=== PATIENT | female | born 1935 ===

== ENCOUNTER 2020-07-09 09:18 | Inpatient (IN) | payer MEDICARE, OTHER ==
[~2020-07-09] VITALS: Ht 152.4 cm; Wt 61.6 kg
--- NOTE | 2020-07-09 09:30 | NUR ---
TIRE BAGGER: RA SAT = 86%, 2L NC PLACED IN TRIAGE W/ EFFECT SP02 = 97%
--- NOTE | 2020-07-09 09:51 | NUR ---
PT IN GOWN IN [facility] WITH ALL VS AND GROCERY CARRIER ATTACHED. DR VILLARREAL AT . PT EDUCATED ON ER PROCESS AND POC AND VERBALIZES UNDERSTANDING. PT ON 2 L NC SATTING 96%. PT HAS CALL LIGHT WITHIN REACH. PT HISTORY AND ASSESSMENT OBTAINED. AWAITING NEW ORDERS AT THIS TIME.
--- NOTE | 2020-07-09 10:16 | NUR ---
BS REPORT OF PT TO LIMA GRIFFITH. ALL QUESTIONS ANSWERED.
--- NOTE | 2020-07-09 10:28 | NUR ---
BEDSIDE SBAR RPT REC'D AND PT CARE ASSUMED.
[2020-07-09 10:39] LABS: BASOPHILS % (AUTO) 0 % (0-1); EOSINOPHILS % (AUTO) 0 % (1-7); LYMPHOCYTES % (AUTO) 15 % (22-44); MEAN CORPUSCULAR HEMOGLOBIN 30.8 pg (27.0-34.8); MEAN CORPUSCULAR HGB CONC 33.9 g/dL (32.4-35.8); MEAN PLATELET VOLUME 7.6 fL (7.4-10.4); MONOCYTES % (AUTO) 15 % (2-9); NEUTROPHILS % (AUTO) 70 % (42-75); PLATELET COUNT 288 x10^3/uL (130-400); RED BLOOD COUNT 4.43 x10^6/uL (3.82-5.3); RED CELL DISTRIBUTION WIDTH 13.9 % (9.6-15.2)
[2020-07-09 10:41] LABS: MD NO
[2020-07-09] MEDS ORDERED: CEFTRIAXONE PMX 1GM/50ML 50 ML ONE (10:49)
[2020-07-09 10:50] LABS: ANION GAP 8 mmol/L (5-15); CALCIUM 8.8 mg/dL (8.5-10.1); CHLORIDE 103 mmol/L (98-107)
[2020-07-09 10:54] LABS: ALANINE AMINOTRANSFERASE 28 U/L (12-78); ALKALINE PHOSPHATASE 119 U/L (45-117); BILIRUBIN,TOTAL 0.9 mg/dL (0.2-1.0); CREATININE 0.97 mg/dL (0.55-1.02); TOTAL PROTEIN 7.8 g/dL (6.4-8.2)
[2020-07-09] MEDS ORDERED: CEFTRIAXONE PMX 1GM/50ML 50 ML IV ONE (11:00)
[2020-07-09] MEDS ORDERED: DEXAMETHASONE 4 MG/ML, 1ML IVPush ONE (11:00)
[2020-07-09] MEDS ORDERED: DEXAMETHASONE 4 MG/ML, 1ML ONE (11:12)
[2020-07-09] MEDS: DOXYCYCLINE 100 MG in DEXTROSE 5% 250 ML IV SCH (12:01)
--- NOTE | 2020-07-09 12:04 | NUR ---
PT MOVED ONTO HOSPITAL BED, STAND AND TRANSFER W/O DIFFICULTY. VSS, CALL LIGHT W/I REACH. NAD NOTED. IVF INFUSING W/O DIFFICULTY
[2020-07-09] MEDS ORDERED: ONDANSETRON 2MG/ML, 2ML IVPush PRN (13:00)
[2020-07-09] MEDS ORDERED: ENOXAPARIN 40 MG/0.4 ML SQ SCH (13:00)
[2020-07-09] MEDS ORDERED: CHOLECALCIFEROL (VITAMIN D3) 5000 IU CAP PO SCH (13:00)
[2020-07-09] MEDS ORDERED: POLYETHYLENE GLYCOL 17 GM PACKET PO PRN (13:00)
--- NOTE | 2020-07-09 13:11 | NUR ---
PT OOB TO COMMODE WITH RN STANDBY ASSIST. PT VOIDED AND RTD TO BED W/O INCIDENT. MEAL TRAY PROVIDED AND SET UP FOR PT. ALL MONITORS IN PLACE AND CALL LIGHT W/I REACH
[2020-07-09 13:14] LABS: TROPONIN I < 0.015 ng/mL (0.000-0.045)
[2020-07-09] MEDS ORDERED: ENOXAPARIN 40 MG/0.4 ML ONE (13:17)
[2020-07-09] MEDS ORDERED: CHOLECALCIFEROL 5,000u TAB ONE (13:18)
[2020-07-09] MEDS ORDERED: ZINC SULFATE 220 MG CAPSULE ONE (13:18)
[2020-07-09] MEDS: ZINC SULFATE 220 MG CAPSULE PO SCH (13:19)
--- NOTE | 2020-07-09 14:35 | NUR ---
PT ATE 75%OF NOON MEAL. OOB TO COMMODE WITH RN STANDBY ASSIST. PT TOLLERATED ACTIVITY WELL AND AMBULATED TO SINK AND BACK TO BED W/O DIFFICULTY. CALL LIGHT W/I REACH. VSS.
--- NOTE | 2020-07-09 17:50 | NUR ---
PT OOB TO COMMODE, RN STAND BY ASSIST. PT TOLLERATED ACTIVITY WELL. RTD TO BED, CALL LIGHT W/I REACH
[2020-07-09] MEDS ORDERED: ASCORBIC ACID 500 MG TABLET ONE (17:52)
[2020-07-09] MEDS: ASCORBIC ACID 500 MG TABLET PO SCH (18:01)
--- NOTE | 2020-07-09 18:03 | NUR ---
MEAL TRAY PROVIDED AND SET UP FOR PT. CALL LIGHT W/I REACH
[2020-07-09] MEDS: MELATONIN 5 MG TABLET PO SCH (20:21)
--- NOTE | 2020-07-09 22:14 | NUR ---
REPORT GIVEN TO LIMA ORTIZ.
[2020-07-09] MEDS ORDERED: LOSARTAN (22:45)
--- NOTE | 2020-07-09 22:45 | NUR ---
PT STATES SHE TAKES LOSARTAN FOR BP, DOES NOT KNOW DOSE. PT ALSO TAKES MEDICATION FOR OSTEOPOROSIS. PT IS NOT ABLE TO REMEMBER NAME OF MEDICATION AT THIS TIME.
[2020-07-09 22:59] VITALS: BP 130/80
[2020-07-10] MEDS: DOXYCYCLINE 100 MG in DEXTROSE 5% 250 ML IV SCH ×2 (00:03→11:45)
[2020-07-10 00:37] VITALS: BP 139/88
[2020-07-10] MEDS: CHOLECALCIFEROL 5,000u TAB PO SCH (08:39)
[2020-07-10] MEDS: ZINC SULFATE 220 MG CAPSULE PO SCH (08:39)
[2020-07-10] MEDS: ENOXAPARIN 60 MG/0.6 ML SQ SCH ×2 (08:39→20:50)
[2020-07-10] MEDS: ASCORBIC ACID 500 MG TABLET PO SCH ×2 (08:40→17:40)
[2020-07-10] MEDS: DEXAMETHASONE 4 MG/ML, 1ML IVPush SCH (08:40)
[2020-07-10 08:59] VITALS: BP 113/70
[2020-07-10 12:53] VITALS: BP 138/85
[2020-07-10] MEDS: CEFTRIAXONE PMX 1GM/50ML 50 ML IV SCH (13:02)
[2020-07-10] MEDS: AZITHROMYCIN 500 MG in SODIUM CHLORIDE 0.9% 250 ML IV SCH (14:18)
[2020-07-10] MEDS ORDERED: LOSA100T14 PO (17:36)
[2020-07-10] MEDS ORDERED: ALEN70SO3 PO (17:36)
[2020-07-10 19:34] VITALS: BP 146/75
[2020-07-10] MEDS: MELATONIN 5 MG TABLET PO SCH (20:50)
[2020-07-10] MEDS ORDERED: OMNIPAQUE 350 MG/ML, 100ML BOTTLE ONE (23:43)
[2020-07-11] MEDS: DOXYCYCLINE 100 MG in DEXTROSE 5% 250 ML IV SCH ×2 (00:03→11:27)
[2020-07-11 00:24] VITALS: BP 140/85
[2020-07-11 06:54] VITALS: BP 144/78
[2020-07-11] MEDS: ENOXAPARIN 60 MG/0.6 ML SQ SCH ×2 (07:37→20:11)
[2020-07-11] MEDS: DEXAMETHASONE 4 MG/ML, 1ML IVPush SCH (07:37)
[2020-07-11] MEDS: ZINC SULFATE 220 MG CAPSULE PO SCH (07:37)
[2020-07-11] MEDS: ASCORBIC ACID 500 MG TABLET PO SCH ×2 (07:37→18:05)
[2020-07-11] MEDS: CHOLECALCIFEROL 5,000u TAB PO SCH (07:37)
[2020-07-11] MEDS ORDERED: LOSARTAN 100 MG TAB PO PRN (08:00)
[2020-07-11] MEDS: CEFTRIAXONE PMX 1GM/50ML 50 ML IV SCH (12:40)
[2020-07-11] MEDS: AZITHROMYCIN 500 MG in SODIUM CHLORIDE 0.9% 250 ML IV SCH (13:15)
[2020-07-11 13:57] VITALS: BP 122/72
[2020-07-11] MEDS: ACETAMINOPHEN 325 MG TABLET PO PRN (18:08)
[2020-07-11 18:45] VITALS: BP 143/76
[2020-07-11] MEDS: MELATONIN 5 MG TABLET PO SCH (20:11)
[2020-07-12 00:19] VITALS: BP 151/84
[2020-07-12 06:37] VITALS: BP 130/83
[2020-07-12] MEDS: ENOXAPARIN 60 MG/0.6 ML SQ SCH ×2 (08:00→20:00)
[2020-07-12] MEDS: DEXAMETHASONE 4 MG/ML, 1ML IVPush SCH (08:20)
[2020-07-12] MEDS: ASCORBIC ACID 500 MG TABLET PO SCH ×2 (08:21→18:20)
[2020-07-12] MEDS: CHOLECALCIFEROL 5,000u TAB PO SCH (08:21)
[2020-07-12] MEDS: ZINC SULFATE 220 MG CAPSULE PO SCH (08:21)
[2020-07-12 09:26] LABS: C-REACTIVE PROTEIN, QUANT 1.2 mg/dL (0.02-0.49)
[2020-07-12 13:04] VITALS: BP 129/75
[2020-07-12] MEDS: CEFTRIAXONE PMX 1GM/50ML 50 ML IV SCH (13:18)
[2020-07-12] MEDS: AZITHROMYCIN 500 MG in SODIUM CHLORIDE 0.9% 250 ML IV SCH (13:52)
[2020-07-12 18:28] VITALS: BP 139/78
[2020-07-12] MEDS: MELATONIN 5 MG TABLET PO SCH (20:00)
[2020-07-13 00:30] VITALS: BP 146/72
[2020-07-13 06:19] VITALS: BP 130/75
[2020-07-13] MEDS: DEXAMETHASONE 4 MG/ML, 1ML IVPush SCH (07:47)
[2020-07-13] MEDS: ASCORBIC ACID 500 MG TABLET PO SCH ×2 (07:47→17:40)
[2020-07-13] MEDS: ENOXAPARIN 60 MG/0.6 ML SQ SCH ×2 (07:48→20:14)
[2020-07-13] MEDS: ZINC SULFATE 220 MG CAPSULE PO SCH (07:48)
[2020-07-13] MEDS: CHOLECALCIFEROL 5,000u TAB PO SCH (07:48)
[2020-07-13] MEDS: CEFTRIAXONE PMX 1GM/50ML 50 ML IV SCH (12:25)
[2020-07-13] MEDS: AZITHROMYCIN 500 MG in SODIUM CHLORIDE 0.9% 250 ML IV SCH (13:03)
[2020-07-13 13:07] VITALS: BP 118/65
[2020-07-13 18:41] VITALS: BP 158/76
[2020-07-13] MEDS: MELATONIN 5 MG TABLET PO SCH (20:14)
[2020-07-14 01:04] VITALS: BP 151/79
[2020-07-14 06:26] VITALS: BP 146/81
[2020-07-14] MEDS: ZINC SULFATE 220 MG CAPSULE PO SCH (07:44)
[2020-07-14] MEDS: DEXAMETHASONE 4 MG/ML, 1ML IVPush SCH (07:44)
[2020-07-14] MEDS: CHOLECALCIFEROL 5,000u TAB PO SCH (07:44)
[2020-07-14] MEDS: ENOXAPARIN 60 MG/0.6 ML SQ SCH ×2 (07:44→20:01)
[2020-07-14] MEDS: ASCORBIC ACID 500 MG TABLET PO SCH ×2 (07:44→17:39)
[2020-07-14] MEDS: CEFTRIAXONE PMX 1GM/50ML 50 ML IV SCH (12:31)
[2020-07-14 12:38] VITALS: BP 112/70
[2020-07-14] MEDS: AZITHROMYCIN 500 MG in SODIUM CHLORIDE 0.9% 250 ML IV SCH (13:14)
[2020-07-14] MEDS: ACETAMINOPHEN 325 MG TABLET PO PRN (17:46)
[2020-07-14 19:45] VITALS: BP 144/82
[2020-07-14] MEDS: MELATONIN 5 MG TABLET PO SCH (20:01)
[2020-07-14 20:09] VITALS: BP 153/94
[2020-07-15 00:23] VITALS: BP 148/78
[2020-07-15 05:21] LABS: CREATININE 0.67 mg/dL (0.55-1.02)
[2020-07-15 07:45] VITALS: BP 133/75
[2020-07-15] MEDS: ASCORBIC ACID 500 MG TABLET PO SCH (09:29)
[2020-07-15] MEDS: ENOXAPARIN 60 MG/0.6 ML SQ SCH (09:29)
[2020-07-15] MEDS: ZINC SULFATE 220 MG CAPSULE PO SCH (09:30)
[2020-07-15] MEDS: DEXAMETHASONE 4 MG/ML, 1ML IVPush SCH (09:30)
[2020-07-15] MEDS: CHOLECALCIFEROL 5,000u TAB PO SCH (09:30)
[2020-07-15] MEDS ORDERED: CHOL500045 PO (11:48)
[2020-07-15] MEDS ORDERED: ASCO500T9 PO (11:48)
[2020-07-15] MEDS ORDERED: ZINC220C7 PO (11:48)
[2020-07-15] MEDS ORDERED: DEXA4TAB66 PO (11:48)
[2020-07-15] MEDS: CEFTRIAXONE PMX 1GM/50ML 50 ML IV SCH (13:00)
[2020-07-15] MEDS: AZITHROMYCIN 500 MG in SODIUM CHLORIDE 0.9% 250 ML IV SCH (13:00)
[2020-07-15 13:32] VITALS: BP 127/68
== END 2020-07-15 17:52 | disposition home or self-care (01) | DRG 177 ==
LOC: ED 10:04 → EDIP 11:04 → SUATTDRO 12:18 → 3N 22:57
PROVIDERS: ADMIT Internal Medicine Infectious Disease; ATTEND Internal Medicine
DX: U07.1 COVID-19 (principal); J96.01 Acute respiratory failure with hypoxia; J12.89 Other viral pneumonia; I10 Essential (primary) hypertension; M81.0 Age-related osteoporosis without current pathological fracture; Z79.899 Other long term (current) drug therapy; Z79.891 Long term (current) use of opiate analgesic; Z79.01 Long term (current) use of anticoagulants; Z80.8 Family history of malignant neoplasm of other organs or systems; Z82.49 Family history of ischemic heart disease and other diseases of the circulatory system
CPT/HCPCS: 36415; 71045; 71275; 80053; 82565; 83605; 83615; 84145; 84484; 85025; 85379; 86140; 87040; 87635; 93005; 99285; G0378; J0456; J0696; J1100; J1650; J7060; Q9967; J7050